=== PATIENT | female | born 1965 | race Two or more races ===

== ENCOUNTER 2024-12-02 10:05 | Outpatient (CLI) | payer OTHER ==
[~2024-12-02 10:05] MED LIST: NO TOMA MEDICAMENTO
== END 2024-12-02 10:14 | disposition home or self-care (01) ==
LOC: SONOGRAMA 10:05
PROVIDERS: ATTEND Physical Medicine & Rehabilitation Hospice and Palliative Medicine
DX: M79.672 Pain in left foot (principal)